=== PATIENT | female | born 1955 | race Hispanic/Latino ===

== ENCOUNTER 2022-02-06 12:09 | Emergency (ER) | payer SELFPAY ==
[2022-02-06 12:21] VITALS: BP 137/75; PULSE 74; RESP 15; TEMP 36.4; O2SAT 97; BMI 29.7
[2022-02-06 13:38] LABS: Add Manual Diff / Slide Review NO; Basophils Absolute Auto 0 /uL (0-100); Basophils Percent Auto 0.6 % (0-2); Eosinophils Absolute Auto 0 /uL (0-450); Eosinophils Percent Auto 0.9 % (2-4); Hematocrit 37.8 % (36-46); Lymphocytes Absolute Auto 2300 /uL (1100-4500); Mean Corpuscular HGB Conc 34.4 % (30-36); Mean Corpuscular Hemoglobin 28.2 PG (26-34); Monocytes Absolute Auto 500 /uL (0-900); Monocytes Percent Auto 10.8 % (3-14); Neutrophils Absolute Auto 1400 /uL (1500-7000); Neutrophils Percent Auto 32.7 % (50-75); Platelet Count 203 X10^3/uL (150-400); Red Blood Cell Count 4.61 X10^6/uL (4.0-5.2); Red Cell Distribution Width 13.4 % (11.6-14.8); White Blood Cell Count 4.3 X10^3/uL (4.5-11.0)
[2022-02-06 13:50] LABS: Alanine Aminotransferase 25 IU/L (<35); Albumin 4.1 g/dL (3.5-5.0); Albumin Globulin Ratio 1.1 (1.0-2.8); Alkaline Phosphatase 83 U/L (38-126); Aspartate Aminotransferase 31 IU/L (14-36); BUN Creatinine Ratio 16.1 (6-22); Bilirubin Total 0.7 mg/dL (0.2-1.3); Blood Urea Nitrogen 9 mg/dL (7-17); Calcium 8.6 mg/dL (8.4-10.2); Carbon Dioxide 28 mmol/L (22-32); Chloride 102 mmol/L (98-107); Estimated Glomerular Filt Rate > 60 mL/min (>60); Globulin 3.8 g/dL (1.7-4.1); Glucose 113 mg/dL (80-110); HEMOLYSIS < 15 (0-50); Lipase 109 U/L (23-300); Potassium 3.8 mmol/L (3.4-5.1); Sodium 138 mmol/L (137-145); Total Protein 7.9 g/dL (6.3-8.2)
[2022-02-06 17:07] VITALS: BP 144/74; PULSE 69; O2SAT 100
[2022-02-06 17:30] VITALS: BP 173/84
[2022-02-06 17:31] VITALS: PULSE 61; RESP 18; O2SAT 99
--- NOTE | 2022-02-06 17:38 | ED_ITS ---
HPI - Abdominal Pain <LURDES Draper - Last Filed: 02/06/22 19:39> General Chief Complaint: Abdominal Pain Stated Complaint: Lower abd pain, throwing up, 2 weeks Time Seen by Provider: 02/06/22 17:34 Source: patient Mode of arrival: Wheelchair History of Present Illness HPI narrative: This is a 66-year-old female who presents to the emergency department with her daughter, she is Setswana-speaking mostly, her daughter's translating for her and complains of suprapubic pain/pressure and tenderness for the last 1-2 weeks as well as tenderness at her anus which could be related to hemorrhoids. She denies fever chills, endorses urinary frequency and urgency at night, denies any flank pain, other abdominal pain, has a history of total hysterectomy. States that she has a history of constipation. Last bowel movement was yesterday. States that she had to strain. Denies shortness of breath but endorses having a cough and history of asthma. States that she uses her inhalers but has not had to use them more than usual. Has had nausea and vomiting. Related Data Previous Rx's Medication Instructions Recorded amoxicillin 500 mg tablet 1,000 mg PO TID 5 days #30 tabs 02/06/22 azithromycin 250 mg tablet 250 mg PO DAILY 5 days #5 tabs 02/06/22 hydrocortisone 2.5 % topical cream 1 applic topical BID PRN 02/06/22 hemorrhoids #30 grams ondansetron 4 mg disintegrating 4 mg PO Q8H #10 tabs 02/06/22 tablet prednisone 20 mg tablet 20 mg PO DAILY #4 tabs 02/06/22 Allergies Allergy/AdvReac Type Severity Reaction Status Date / Time No Known Drug Allergies Allergy Verified 02/06/22 12:21 Review of Systems <LURDES Draper - Last Filed: 02/06/22 19:39> Review of Systems ROS Unobtainable: All systems reviewed & are unremarkable except as noted in HPI and below Patient History <LURDES Draper - Last Filed: 02/06/22 19:39> Social History Smoking Status: Unknown if ever smoked Smoking Status: Unknown if ever smoked alcohol intake frequency: holidays/special occasions only Substance Use Type: does not use Exam <LURDES Draper - Last Filed: 02/06/22 19:39> Narrative Exam Narrative: Reviewed vitals signs and nursing notes. General: cooperative, comfortable, in no acute distress, well groomed HEENT: symmetrical facial expressions, moist mucous membranes, EOMI Cardiovascular: regular rate and rhythm, no peripheral edema, warm extremities Respiratory: normal effort, able to speak in complete sentences, without wheezing, hypoxia or tachypnea. Crackles auscultated to right posterior lower l obe. GI: abdomen soft, tender to palpation only over her suprapubic region, no other abdominal tenderness, nondistended, without masses, rebound tenderness MSK: moves all extremities, neurovascularly intact, no weakness, normal tone Skin: brisk capillary refill, without pallor or erythema Neuro: normal speech and cognition, A&O x3, ambulatory, clear speech Psych: mental status is grossly normal, congruent mood, normal affect, pleasant and cooperative Initial Vital Signs Initial Vital Signs: Vital Signs Temperature 97.5 F L 02/06/22 12:21 Pulse Rate 74 02/06/22 12:21 Respiratory Rate 15 02/06/22 12:21 Blood Pressure 137/75 02/06/22 12:21 Pulse Oximetry 97 02/06/22 12:21 Oxygen Delivery Method 02/06/22 12:21 <Alexandrea Emery MD - Last Filed: 02/07/22 01:25> Initial Vital Signs Initial Vital Signs: Vital Signs Temperature 97.5 F L 02/06/22 12:21 Pulse Rate 74 02/06/22 12:21 Respiratory Rate 15 02/06/22 12:21 Blood Pressure 137/75 02/06/22 12:21 Pulse Oximetry 97 02/06/22 12:21 Oxygen Delivery Method 02/06/22 12:21 Scores <LURDES Draper - Last Filed: 02/06/22 19:39> CURB-65 Confusion: No BUN >19mg/dL (>7mmol/L): No Respiratory rate greater or equal to 30: No SBP <90mmHg or DBP less or equal to 60mmHg: No Age 65 or Older: No CURB-65 Total: 0 Score 0-1 Outpatient care, Score 2 Inpt vs. Obs, Score 3 or over Inpt admit with ICU for score of 4-5 <Alexandrea Emery MD - Last Filed: 02/07/22 01:25> CURB-65 CURB-65 Total: 0 Course <LURDES Draper - Last Filed: 02/06/22 19:39> Orders Ordered: ED Orders 02/06/22 17:42 Urine Microscopic Stat 02/06/22 17:54 CT abdomen pelvis w con Stat 02/06/22 18:50 Covid-19 + FLU A/B + RSV - PCR Stat Discontinued Medications Amoxicillin (Amoxicillin 250 Mg Capsule) 1,000 mg PO NOW ONE Stop: 02/06/22 19:24 Last Admin: 02/06/22 19:41 Dose: 1,000 mg Documented By: AL Azithromycin (Azithromycin 250 Mg Tablet) 500 mg PO NOW ONE Stop: 02/06/22 19:24 Last Admin: 02/06/22 19:42 Dose: 500 mg Documented By: AL Cephalexin HCl (Cephalexin 250 Mg Capsule) 500 mg PO NOW ONE Stop: 02/06/22 17:55 Last Admin: 02/06/22 19:45 Dose: Not Given Documented By: AL Ondansetron HCl (Ondansetron 4 Mg/2 Ml Inj) 4 mg IV NOW PRN PRN Reason: Nausea And Vomiting Last Admin: 02/06/22 17:59 Dose: 4 mg Documented By: ESHA Vital Signs Vital signs: Vital Signs - 8 hr 02/06/22 18:15 02/06/22 17:30 02/06/22 17:31 Pulse Rate 75 61 Respiratory Rate 18 18 Blood Pressure 140/74 173/84 H Pulse Oximetry 99 99 <Alexandrea Emery MD - Last Filed: 02/07/22 01:25> Orders Ordered: ED Orders 02/06/22 17:42 Urine Microscopic Stat 02/06/22 17:54 CT abdomen pelvis w con Stat 02/06/22 18:50 Covid-19 + FLU A/B + RSV - PCR Stat Discontinued Medications Amoxicillin (Amoxicillin 250 Mg Capsule) 1,000 mg PO NOW ONE Stop: 02/06/22 19:24 Last Admin: 02/06/22 19:41 Dose: 1,000 mg Documented By: AL Azithromycin (Azithromycin 250 Mg Tablet) 500 mg PO NOW ONE Stop: 02/06/22 19:24 Last Admin: 02/06/22 19:42 Dose: 500 mg Documented By: AL Cephalexin HCl (Cephalexin 250 Mg Capsule) 500 mg PO NOW ONE Stop: 02/06/22 17:55 Last Admin: 02/06/22 19:45 Dose: Not Given Documented By: AL Ondansetron HCl (Ondansetron 4 Mg/2 Ml Inj) 4 mg IV NOW PRN PRN Reason: Nausea And Vomiting Last Admin: 02/06/22 17:59 Dose: 4 mg Documented By: ESHA Vital Signs Vital signs: Vital Signs - 8 hr 02/06/22 18:15 02/06/22 17:30 02/06/22 17:31 Pulse Rate 75 61 Respiratory Rate 18 18 Blood Pressure 140/74 173/84 H Pulse Oximetry 99 99 MDM - Abdominal Pain <LURDES Draper - Last Filed: 02/06/22 19:39> Lab Data Result diagrams: 02/06/22 13:25 02/06/22 13:25 Labs: Lab Results 02/06/22 02/06/22 02/06/22 Range/Units 13:25 13:25 17:42 WBC 4.3 L (4.5-11.0) X10^3/uL RBC 4.61 (4.0-5.2) X10^6/uL Hgb 13.0 (12.0-16.0) g/dL Hct 37.8 (36-46) % MCV 82.0 (80-100) fL MCH 28.2 (26-34) PG MCHC 34.4 (30-36) % RDW 13.4 (11.6-14.8) % Plt Count 203 (150-400) X10^3/uL Neut % (Auto) 32.7 L (50-75) % Lymph % (Auto) 55.0 H (25-40) % [place] % (Auto) 10.8 (3-14) % Eos % (Auto) 0.9 L (2-4) % Baso % (Auto) 0.6 (0-2) % Neut # (Auto) 1400 L (9494-6828) /uL Lymph # (Auto) 2300 (6739-9384) /uL [place] # (Auto) 500 (0-900) /uL Eos # (Auto) 0 (0-450) /uL Baso # (Auto) 0 (0-100) /uL Sodium 138 (137-145) mmol/L Potassium 3.8 (3.4-5.1) mmol/L Chloride 102 (98-107) mmol/L Carbon Dioxide 28 (22-32) mmol/L BUN 9 (7-17) mg/dL Creatinine 0.56 (0.52-1.04) mg/dL Estimated GFR > 60 (>60) mL/min BUN/Creatinine Ratio 16.1 (6-22) Glucose 113 H (80-110) mg/dL Calcium 8.6 (8.4-10.2) mg/dL Total Bilirubin 0.7 (0.2-1.3) mg/dL AST 31 (14-36) IU/L ALT 25 (<35) IU/L Alkaline Phosphatase 83 (38-126) U/L Total Protein 7.9 (6.3-8.2) g/dL Albumin 4.1 (3.5-5.0) g/dL Globulin 3.8 (1.7-4.1) g/dL Albumin/Globulin Ratio 1.1 (1.0-2.8) Lipase 109 (23-300) U/L Urine RBC 0-1/hpf (0-5/HPF) Urine WBC 0-1/hpf (0-5/HPF) Ur Squamous Epith Cells 0-1 /hpf (0-5/HPF) Urine Bacteria None seen (None) Ur Culture Indicated? Cult not indicated SARS-CoV-2 (PCR) (Negative) Influenza A (RT-PCR) (NEGATIVE) Influenza B (RT-PCR) (NEGATIVE) RSV (PCR) (Negative) 02/06/22 Range/Units 18:50 WBC (4.5-11.0) X10^3/uL RBC (4.0-5.2) X10^6/uL Hgb (12.0-16.0) g/dL Hct (36-46) % MCV (80-100) fL MCH (26-34) PG MCHC (30-36) % RDW (11.6-14.8) % Plt Count (150-400) X10^3/uL Neut % (Auto) (50-75) % Lymph % (Auto) (25-40) % [place] % (Auto) (3-14) % Eos % (Auto) (2-4) % Baso % (Auto) (0-2) % Neut # (Auto) (8777-1315) /uL Lymph # (Auto) (2208-1056) /uL [place] # (Auto) (0-900) /uL Eos # (Auto) (0-450) /uL Baso # (Auto) (0-100) /uL Sodium (137-145) mmol/L Potassium (3.4-5.1) mmol/L Chloride (98-107) mmol/L Carbon Dioxide (22-32) mmol/L BUN (7-17) mg/dL Creatinine (0.52-1.04) mg/dL Estimated GFR (>60) mL/min BUN/Creatinine Ratio (6-22) Glucose (80-110) mg/dL Calcium (8.4-10.2) mg/dL Total Bilirubin (0.2-1.3) mg/dL AST (14-36) IU/L ALT (<35) IU/L Alkaline Phosphatase (38-126) U/L Total Protein (6.3-8.2) g/dL Albumin (3.5-5.0) g/dL Globulin (1.7-4.1) g/dL Albumin/Globulin Ratio (1.0-2.8) Lipase (23-300) U/L Urine RBC (0-5/HPF) Urine WBC (0-5/HPF) Ur Squamous Epith Cells (0-5/HPF) Urine Bacteria (None) Ur Culture Indicated? SARS-CoV-2 (PCR) Negative (Negative) Influenza A (RT-PCR) Flu a positive H (NEGATIVE) Influenza B (RT-PCR) Flu b negative (NEGATIVE) RSV (PCR) Negative (Negative) Point of care testing: Urine Dip Bedside Urine Glucose Negative Bedside Urine Bilirubin - Negative Bedside Urine Ketone - Negative Urine Specific [place] 1.015 Bedside Urine Occult Blood + Bedside Urine pH 6.0 Bedside Urine Protein - Negative Bedside Urine Urobilinogen - Negative Bedside Urine Nitrite - Negative Bedside Urine Leukocytes - Negative Esterase Imaging Data CT scan - abdomen/pelvis: Radiologist's Impression: PROCEDURE:? CT ABDOMEN PELVIS W CON ? INDICATIONS:? suprapubic pain ? TECHNIQUE:? After the administration of intravenous contrast, axial sections acquired from the lung bases to the pubic symphysis.? Coronal and sagittal reformats were performed.? For radiation dose reduction, the following was used:? automated exposure control, adjustment of mA and/or kV according to patient size.? ? COMPARISON:? None. ? FINDINGS:? Image quality:? Excellent.? ? Lung bases:? Small patchy pneumonia, right lower lobe. Heart:? No significant findings. ? ABDOMEN: Liver:? Unremarkable.? ? Gallbladder:? Contracted, within normal limits? ? Biliary ducts:? Unremarkable.? ? Pancreas:? Unremarkable.? ? Spleen:? Unremarkable.? ? Adrenal Glands:? Unremarkable.? ? Kidneys and Ureters:? Unremarkable.? ? ? Stomach and Bowel:? Stomach, small bowel loops, and colon are unremarkable.? Peritoneum:? No abnormal intraperitoneal fluid.? No free air.? ? Ventral Wall: ? No hernias.? Abdominal Nodes:? No retroperitoneal or mesenteric adenopathy by size criteria.? Vessels:? Aorta and inferior vena cava are normal in size.? ? PELVIS: Pelvic Organs:? Uterus is surgically absent.? ? Bladder:? Unremarkable.? ? Pelvic Nodes: No enlarged lymph nodes.? Miscellaneous: No hernias are seen. ? ? ? Bones:? Unremarkable.? IMPRESSION:? ? 1. Small focal pneumonia, right lower lobe. ? 2. Remote hysterectomy. ? 3. No evidence of acute abdominal process.? ? ? Comment: Progress films are recommended until clear. ? Dictated by: Liu Zarate M.D. on 02/06/2022 at 19:13 ? ? Approved by: Liu Zarate M.D. on 02/06/2022 at 19:16 ? ECG Data Interpretation: EKG independently reviewed by myself at 1350 reveals normal sinus rhythm at 68 bpm with regular axis and intervals. No STEMI, ST segment changes, arrhythmia, or acute ischemic changes. Inverted T-waves in V3, V4, V5 and V6 without ST segment depression MDM Narrative Medical decision making narrative: This is a 66-year-old female presents to the emergency department with chief complaint of suprapubic pain for 2 weeks, hemorrhoidal pain for 1 week, a mild cough with history of asthma and some increased fatigue. Her lab work was grossly unremarkable, without leukocytosis or signs of urinary tract infection. She is without mental status changes, weakness, fever, chills, CT abdomen and pelvis was obtained after exam because patient had nonfocal symptoms and history of hysterectomy. It shows a small focal pneumonia on the right lower lobe which corresponds to crackles auscultated to her right lower posterior lobe, no other evidence of acute abdominal process, respiratory panel is negative for COVID, influenza and RSV. Patient is without wheezing, tachypnea, hypoxia, or signs of systemic illness. Curb 65 is a score of 0. Treated patient with amoxicillin t.i.d. x5 days, 1st dose given here and azithromycin 500 mg given your with 250 mg daily for 5 days, Zofran as needed for nausea vomiting. EKG does not show any acute changes, she does have flipped T-waves in V3 through V 6 without electrolyte abnormalities, complained of chest pain or shortness of breath. Patient does not have PCP, encouraged to follow-up with 1, return for worsening symptoms, and given contact information for [facility] if she wishes to have her hemorrhoids removed. He was given topical hydrocortisone for this, Zofran for nausea vomiting prednisone for 4 days for history of reactive airway with pneumonia. Patient is appropriate and amenable to discharge home. Vital signs are stable on repeat examination is unremarkable. Patient has been informed of results. Patient has been given strict return to ER precautions for any new or worsening symptoms. Patient understands to follow up closely with outpatient providers as instructed. Patient understands plan and agrees to discharge home. All questions and concerns answered at this time. <Alexandrea Emery MD - Last Filed: 02/07/22 01:25> Lab Data Labs: Lab Results 02/06/22 02/06/22 02/06/22 Range/Units 13:25 13:25 17:42 WBC 4.3 L (4.5-11.0) X10^3/uL RBC 4.61 (4.0-5.2) X10^6/uL Hgb 13.0 (12.0-16.0) g/dL Hct 37.8 (36-46) % MCV 82.0 (80-100) fL MCH 28.2 (26-34) PG MCHC 34.4 (30-36) % RDW 13.4 (11.6-14.8) % Plt Count 203 (150-400) X10^3/uL Neut % (Auto) 32.7 L (50-75) % Lymph % (Auto) 55.0 H (25-40) % [place] % (Auto) 10.8 (3-14) % Eos % (Auto) 0.9 L (2-4) % Baso % (Auto) 0.6 (0-2) % Neut # (Auto) 1400 L (3024-6214) /uL Lymph # (Auto) 2300 (6446-9084) /uL [place] # (Auto) 500 (0-900) /uL Eos # (Auto) 0 (0-450) /uL Baso # (Auto) 0 (0-100) /uL Sodium 138 (137-145) mmol/L Potassium 3.8 (3.4-5.1) mmol/L Chloride 102 (98-107) mmol/L Carbon Dioxide 28 (22-32) mmol/L BUN 9 (7-17) mg/dL Creatinine 0.56 (0.52-1.04) mg/dL Estimated GFR > 60 (>60) mL/min BUN/Creatinine Ratio 16.1 (6-22) Glucose 113 H (80-110) mg/dL Calcium 8.6 (8.4-10.2) mg/dL Total Bilirubin 0.7 (0.2-1.3) mg/dL AST 31 (14-36) IU/L ALT 25 (<35) IU/L Alkaline Phosphatase 83 (38-126) U/L Total Protein 7.9 (6.3-8.2) g/dL Albumin 4.1 (3.5-5.0) g/dL Globulin 3.8 (1.7-4.1) g/dL Albumin/Globulin Ratio 1.1 (1.0-2.8) Lipase 109 (23-300) U/L Urine RBC 0-1/hpf (0-5/HPF) Urine WBC 0-1/hpf (0-5/HPF) Ur Squamous Epith Cells 0-1 /hpf (0-5/HPF) Urine Bacteria None seen (None) Ur Culture Indicated? Cult not indicated SARS-CoV-2 (PCR) (Negative) Influenza A (RT-PCR) (NEGATIVE) Influenza B (RT-PCR) (NEGATIVE) RSV (PCR) (Negative) 02/06/22 Range/Units 18:50 WBC (4.5-11.0) X10^3/uL RBC (4.0-5.2) X10^6/uL Hgb (12.0-16.0) g/dL Hct (36-46) % MCV (80-100) fL MCH (26-34) PG MCHC (30-36) % RDW (11.6-14.8) % Plt Count (150-400) X10^3/uL Neut % (Auto) (50-75) % Lymph % (Auto) (25-40) % [place] % (Auto) (3-14) % Eos % (Auto) (2-4) % Baso % (Auto) (0-2) % Neut # (Auto) (3774-1712) /uL Lymph # (Auto) (5250-3973) /uL [place] # (Auto) (0-900) /uL Eos # (Auto) (0-450) /uL Baso # (Auto) (0-100) /uL Sodium (137-145) mmol/L Potassium (3.4-5.1) mmol/L Chloride (98-107) mmol/L Carbon Dioxide (22-32) mmol/L BUN (7-17) mg/dL Creatinine (0.52-1.04) mg/dL Estimated GFR (>60) mL/min BUN/Creatinine Ratio (6-22) Glucose (80-110) mg/dL Calcium (8.4-10.2) mg/dL Total Bilirubin (0.2-1.3) mg/dL AST (14-36) IU/L ALT (<35) IU/L Alkaline Phosphatase (38-126) U/L Total Protein (6.3-8.2) g/dL Albumin (3.5-5.0) g/dL Globulin (1.7-4.1) g/dL Albumin/Globulin Ratio (1.0-2.8) Lipase (23-300) U/L Urine RBC (0-5/HPF) Urine WBC (0-5/HPF) Ur Squamous Epith Cells (0-5/HPF) Urine Bacteria (None) Ur Culture Indicated? SARS-CoV-2 (PCR) Negative (Negative) Influenza A (RT-PCR) Flu a positive H (NEGATIVE) Influenza B (RT-PCR) Flu b negative (NEGATIVE) RSV (PCR) Negative (Negative) Point of care testing: Urine Dip Bedside Urine Glucose Negative Bedside Urine Bilirubin - Negative Bedside Urine Ketone - Negative Urine Specific [place] 1.015 Bedside Urine Occult Blood + Bedside Urine pH 6.0 Bedside Urine Protein - Negative Bedside Urine Urobilinogen - Negative Bedside Urine Nitrite - Negative Bedside Urine Leukocytes - Negative Esterase Discharge Plan Departure Patient Disposition: Home Clinical Impression: Acute hemorrhoid Pneumonia Qualifiers: Pneumonia type: due to unspecified organism Laterality: right Lung location: lower lobe of lung Qualified Code(s): J18.9 - Pneumonia, unspecified organism Nausea and vomiting Qualifiers: Vomiting type: unspecified Qualified Code(s): R11.2 - Nausea with vomiting, unspecified Instructions: Pneumonia-Adult, DI for Hemorrhoids, DI for Vomiting -- Adult Activity Restrictions/Additional Instructions: *You have been diagnosed with nausea and vomiting, hemorrhoids, but most importantly a right-sided pneumonia. Please use your inhalers for your asthma as needed for shortness of breath. Take these antibiotics as prescribed. Please return for worsening symptoms, use the hydrocortisone cream on your bottom to help with hemorrhoid pain. Please use MiraLax daily which is available [id number] once daily for soft stools. Please practice deep breathing and coughing frequently throughout the day and use the incentive spirometer as you were taught today. Please return for any worsening symptoms. I hope you feel better soon, please contact the surgeon's office if you would like to have your hemorrhoids removed. *What to do: *Please continue to take your regular medications as directed. [x ] New medication prescriptions sent to your pharmacy: [[facility] ] [ ] New medication written as a paper prescription [ ] No new medications given *Please follow up with your primary care provider in 2-3 days, call for an appointment. Let them know you were seen in the Emergency Department and that we asked that you be seen for follow-up. We will electronically transmit a record of today's note if your PCP is in our system *If you do not have a primary care provider please contact [phone] to establish care with one of the [facility] primary care providers. *Return to Emergency Department if you should have any new, worsening, or concerning symptoms, such as [fever greater than 101F, chills, worsening pain, persistent vomiting or other bothersome symptoms]. Prescriptions: New ondansetron 4 mg tablet,disintegrating 4 mg PO Q8H Qty: 10 0RF amoxicillin 500 mg tablet 1,000 mg PO TID 5 Days Qty: 30 0RF azithromycin 250 mg tablet 250 mg PO DAILY 5 Days Qty: 5 0RF hydrocortisone 2.5 % cream 1 applic topical BID PRN (Reason: hemorrhoids) Qty: 30 0RF prednisone 20 mg tablet 20 mg PO DAILY Qty: 4 0RF Referrals: [facility] [Provider Group] Visit Report Forms: Patient Portal/API <Alexandrea Emery MD - Last Filed: 02/07/22 01:25> Cosign ED Attending Cosignature Attestation: I was immediately available in the department for consultation throughout this patient's visit. I agree with documentation as above. Alexandrea Emery MD
--- NOTE | 2022-02-06 17:54 | DI.CT.S_ITS ---
PROCEDURE: CT ABDOMEN PELVIS W CON INDICATIONS: suprapubic pain TECHNIQUE: After the administration of intravenous contrast, axial sections acquired from the lung bases to the pubic symphysis. Coronal and sagittal reformats were performed. For radiation dose reduction, the following was used: automated exposure control, adjustment of mA and/or kV according to patient size. COMPARISON: None. FINDINGS: Image quality: Excellent. Lung bases: Small patchy pneumonia, right lower lobe. Heart: No significant findings. ABDOMEN: Liver: Unremarkable. Gallbladder: Contracted, within normal limits Biliary ducts: Unremarkable. Pancreas: Unremarkable. Spleen: Unremarkable. Adrenal Glands: Unremarkable. Kidneys and Ureters: Unremarkable. Stomach and Bowel: Stomach, small bowel loops, and colon are unremarkable. Peritoneum: No abnormal intraperitoneal fluid. No free air. Ventral Wall: No hernias. Abdominal Nodes: No retroperitoneal or mesenteric adenopathy by size criteria. Vessels: Aorta and inferior vena cava are normal in size. PELVIS: Pelvic Organs: Uterus is surgically absent. Bladder: Unremarkable. Pelvic Nodes: No enlarged lymph nodes. Miscellaneous: No hernias are seen. Bones: Unremarkable. IMPRESSION: 1. Small focal pneumonia, right lower lobe. 2. Remote hysterectomy. 3. No evidence of acute abdominal process. Comment: Progress films are recommended until clear. Dictated by: Liu Zarate M.D. on 02/06/2022 at 19:13 Approved by: Liu Zarate M.D. on 02/06/2022 at 19:16
[2022-02-06] MEDS: ONDANSETRON 4 MG/2 ML INJ IV (17:59)
[2022-02-06 18:02] LABS: Bacteria Urine None Seen; Culture Indicated Urine Cult Not Indicated; RBC Urine 0-1/HPF (0-5/HPF); Squamous Epithelial Cell Urine 0-1 /HPF (0-5/HPF); WBC Urine 0-1/HPF (0-5/HPF)
[2022-02-06 18:15] VITALS: BP 140/74; PULSE 75; RESP 18; O2SAT 99
--- NOTE | 2022-02-06 19:25 | PC.NURSE ---
Report received - assumed care of pt at this time
[2022-02-06 19:36] LABS: Influenza A - CEPHEID Flu A POSITIVE (NEGATIVE); Influenza B - CEPHEID Flu B NEGATIVE (NEGATIVE); Respiratory Syncytial Virus Negative (Negative)
[2022-02-06] MEDS: AMOXICILLIN 250 MG CAPSULE 1000 MG PO (19:41)
[2022-02-06 19:42] LABS: COVID-19 CEPHEID 4-PLEX PCR Negative (Negative)
[2022-02-06] MEDS: AZITHROMYCIN 250 MG TABLET 500 MG PO (19:42)
== END 2022-02-06 19:51 | disposition home or self-care (01) ==
PROVIDERS: Emergency Medicine; Emergency Provider Nurse Practitioner Critical Care Medicine
DX: J18.9 Pneumonia, unspecified organism (principal); J10.1 Influenza due to other identified influenza virus with other respiratory manifestations; K64.9 Unspecified hemorrhoids; R11.2 Nausea with vomiting, unspecified; Z20.822 Contact with and (suspected) exposure to COVID-19
CPT/HCPCS: 0241U; 74177; 80053; 81003; 81015; 83690; 85025; 93005; 96374; 99284; J2405; Q9967